=== PATIENT | female | born 1960 | race Caucasian/White ===

== ENCOUNTER 2018-12-21 09:42 | Outpatient (REF) | payer OTHER, SELFPAY ==
[2018-12-21 12:18] LABS: ALT 40 U/L (14-59); AST 28 U/L (15-37); Albumin 3.6 g/dL (3.4-5.0); Alkaline Phosphatase 70 U/L (46-116); Anion Gap 6.3 mmol/L (3-11); BUN 19 mg/dL (7-18); Bilirubin, Total 0.6 mg/dL (0.2-1.0); CO2 29.7 mmol/L (21.0-32.0); CREATININE 0.89 mg/dL (0.55-1.02); Calcium 8.8 mg/dL (8.5-10.1); Calculated LDL 123 mg/dL; Chloride 109 mmol/L (98-107); Cholesterol 184 mg/dL (50-200); Glucose 96 mg/dL (70-100); HDL Cholesterol 39 mg/dL (40-60); Potassium 4.1 mmol/L (3.5-5.1); Sodium 145 mmol/L (136-145); Total Protein 6.9 g/dL (6.4-8.2); Triglyceride 113 mg/dL (30-150)
== END 2018-12-21 10:02 ==
LOC: NCHCN 09:42
PROVIDERS: PCP Nurse Practitioner; Visit Provider Nurse Practitioner
DX: I10 Essential (primary) hypertension (principal)
CPT/HCPCS: 80053; 80061

== ENCOUNTER 2019-01-04 01:24 | Outpatient (CLI) | payer OTHER, SELFPAY ==
--- NOTE | 2019-01-04 10:15 | DI.RAD_ITS ---
EXAM: XR KNEE RT 3V AP,LAT,SYLVIE INDICATION: RT KNEE PAIN, M25.561. COMPARISON: No exams were available for comparison TECHNIQUE: 2D digital imaging was performed. FINDINGS: The bony structures are normally mineralized. There is narrowing of the lateral tibiofemoral joint s pace. Minimal periarticular hypertrophic spurring is evident. There is no evidence of a joint effus ion. IMPRESSION: Ivru-od-xsrhfkjt DJD is demonstrated.
== END 2019-01-04 01:44 ==
PROVIDERS: PCP Nurse Practitioner; Visit Provider Nurse Practitioner
DX: M25.561 Pain in right knee (principal); M17.11 Unilateral primary osteoarthritis, right knee
CPT/HCPCS: 73562

== ENCOUNTER 2019-02-24 01:41 | Outpatient (CLI) | payer OTHER, SELFPAY ==
--- NOTE | 2019-02-24 14:35 | DI.MRI_ITS ---
EXAM: MR LOWER JOINT RT WO CLINICAL HISTORY: RIGHT KNEE INJURY S83.282A TEAR LATERAL MENISCUS, INJURED STEPPING OVER A DOG GATE , SWELLING. TECHNIQUE: Multiplanar multisequence MRI was performed. MR examination of the knee was performed ac cording to the usual protocol. COMPARISON: No exams were available for comparison FINDINGS: There is a small joint effusion. There is a fluid collection in the prepatellar bursa and there also a fluid collection in the soft tissues anterior to the anterior tibial tubercle. The underlying pat ellar and quadriceps tendons appear intact. There is irregular cortical thinning of the patella and the trochlear surface of the femur consistent with degenerative change. Retinacular structures of the patella appear intact. No bony signal abnormality seen involving the femur, tibia or fibula except for mildly abnormal signa l in lateral tibial plateau consistent with degenerative change and associated with mild marginal ost eophyte formation of the lateral proximal tibia. There is abnormal signal in the lateral meniscus, which shows significant deformity, and there is a p robable lateral meniscal tear involving the body and anterior horn. There is cyst measuring approxim ately 9 millimeters in diameter, which appears to communicate with the joint space associated with th e anterior horn of the lateral meniscus, and this may represent a meniscal cyst. Medial meniscus shows abnormal signal consistent with degeneration but no focal tear is identified. Cruciate ligaments appear normal. No significant collateral ligament injury seen. IMPRESSION: Degenerative changes are noted involving all 3 articulations of the knee, irregular cartilage thinnin g at all 3 joints and marginal osteophyte formation at multiple sites. Probable lateral meniscal tear with presumed meniscal cyst associated anteriorly extending into Hoffa 's fat pad. Small fluid collections in prepatellar bursa and in the soft tissues anterior to the anterior tibial tubercle consistent with trauma or inflammation.
== END 2019-02-24 02:01 ==
PROVIDERS: PCP Nurse Practitioner; Visit Provider Student in an Organized Health Care Education/Training Program
DX: S83.281A Other tear of lateral meniscus, current injury, right knee, initial encounter (principal); M25.461 Effusion, right knee; M25.561 Pain in right knee; M17.11 Unilateral primary osteoarthritis, right knee; M25.861 Other specified joint disorders, right knee
CPT/HCPCS: 73721

== ENCOUNTER 2019-04-11 13:08 | Outpatient (CLI) | payer OTHER, SELFPAY ==
--- NOTE | 2019-04-11 14:08 | HPE_ITS ---
Assessment and Plan Assessment and plan (1) Acute lateral meniscus tear of right knee: Status: Acute Assessment and plan: Plan: Educated patient on surgery covering surgical technique, recovery process, benefits and risks including but not limited to risk of infection, blood clot, damage to soft tissue/blood vessels/nerves in detail. After discussion patient gives verbal understanding of risks and elects to proceed with scheduling surgery. Patient had opportunity to have questions answered to their satisfaction. Patient reports that due to phlegm in her throat she did see nurse pool hall inspector. If patient has any worsening cold or new symptoms she will contact office to further discuss. Patient had numerous questions regarding possibility for continued right knee pain following surgery. Patient did not previously have right knee pain prior to her fall in November therefore she has a good prognosis for pain improvement with her scheduled procedure. However, provider made it clear there are no guarantees for knee pain resolution. Patient gave verbal understanding and still elected to proceed with surgery. They will contact office if issues arise. Patient will continue to be scheduled for right knee arthroscopy with likely lateral meniscectomy and associated procedures with Dr. Jarquin. Qualifiers: Encounter type: initial encounter Qualified Code(s): S83.281A - Other tear of lateral meniscus, current injury, right knee, initial encounter History of Present Illness Narrative: Ms. Chapa is a 58-year-old female who presents to clinic for pre- operative exam for scheduled right knee arthroscopy. Patient has been seen in orthopedic clinic for complaints of pain along the anterolateral portion of her right knee that has been ongoing after a tripping fall in November 2018. In addition she reports episodes of clicking and feeling that the knee could give out. She has continued to have restricted ROM and swelling. Due to her continued discomfort she underwent an MRI which as per Dr. Jarquin's note on 03/06/19 showed complex tear lateral meniscus extending into the anterior root with a para meniscal cyst anteriorly within Hoffa's fat pad. Due to her continued pain she was offered surgical intervention and elected to proceed. Pertinent Surgical Information Denies past medical history of: stroke, cardiac issues, angina, asthma, COPD, sleep apnea, renal issues, liver issues, hepatitis, gastrointestinal issues, ulcers, hyperlipidemia, bleeding disorders, seizures, migraines, anxiety, depression, diabetes, autoimmune disorders, thyroid issues Denies prior complications from surgery or anesthesia. Review of Systems Constitutional Constitutional: Denies chills, Denies fever(s), Denies frequent falls and Denies headache(s) Eyes Eyes: Denies change in vision ENT Ears, Nose, Mouth, and Throat: Denies dizziness, Denies ear discharge, Denies headache(s), Denies epistaxis, Denies nasal discharge and Denies sore throat (slight phlegm in her throat for several days) Cardiovascular Cardiovascular: Denies chest pain, Denies rapid heart rate, Denies irregular heart rhythm, Denies palpitations, Denies dyspnea, Denies dyspnea on exertion, Denies orthopnea, Denies paroxysmal nocturnal dyspnea and Denies slow heart rate Respiratory Respiratory: Denies cough, Denies dyspnea, Denies dyspnea on exertion and Denies wheezing Gastrointestinal Gastrointestinal: Denies abdominal pain, Denies melena, Denies hematochezia, Denies constipation, Denies diarrhea, Denies nausea and Denies vomiting Genitourinary Genitourinary: Denies hematuria, Denies dysuria and Denies urinary urgency Musculoskeletal Musculoskeletal: Reports as per HPI, Denies numbness and Denies tingling Neurologic Neurologic: Denies dizziness, Denies frequent falls, Denies headache(s), Denies numbness and Denies tingling Psychiatric Psychiatric: Denies anxiety and Denies depression Endocrine Endocrine: Denies palpitations Allergic/Immunologic Allergic/Immunologic: Denies wheezing [facility] Medical History (Updated 04/11/19 @ 14:14 by Angelique King) Hypertension (Chronic) Surgical History (Updated 04/11/19 @ 14:21 by Angelique King) Status post tubal ligation (Acute) Social History (Updated 04/11/19 @ 14:23 by Angelique King) Smoking/Tobacco Use Status: Never Alcohol Intake: never Drug use: Never Substance use type: does not use 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 What is your relationship status?: Panel score (0-1 are the most socially isolated patients): 1 Do you feel safe at home: Yes Do you feel safe in your relationship?: Yes Meds Home Medications and Allergies Home Medications Medication Instructions Recorded Confirmed Type aspirin 81 mg tablet,delayed 81 mg PO DAILY 02/10/19 04/11/19 History release losartan 100 1 tab PO DAILY 02/10/19 04/11/19 History mg-hydrochlorothiazide 12.5 mg tablet multivitamin 1 tab PO DAILY 04/11/19 04/11/19 History Allergies Allergy/AdvReac Type Severity Reaction Status Date / Time 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 Allergy Severe RASH/HIVES/ Uncoded 04/11/19 14:05 WELTS Exam Const General: cooperative and no acute distress [facility] Head: normal to inspection, normocephalic and atraumatic Ears: external ears normal General nose exam: external nose normal and no nasal discharge Face and sinus: face symmetric Mouth: oral mucosae normal, lip normal, tongue normal and moist mucous membranes Teeth and gingiva: dentition normal Throat: posterior oropharynx normal Eyes General: appearance normal, both eyes and all related structures Pupils: PERRL EOM: EOM intact bilaterally Neck Neck: trachea midline Carotids: normal carotid upstroke Lymphatic: no lymphadenopathy noted Resp Effort & Inspection: normal respiratory effort and able to speak in complete sentences Auscultation: clear to auscultation bilaterally, no rales, no rhonchi and no wheezes Cardio Heart Sounds: S1 normal, S2 normal and no murmurs Pulses: radial pulses present bilaterally Skin General skin exam: no rashes or lesions noted
== END 2019-04-11 13:28 ==
PROVIDERS: PCP Nurse Practitioner; Visit Provider Student in an Organized Health Care Education/Training Program
DX: S83.281A Other tear of lateral meniscus, current injury, right knee, initial encounter (principal); Z01.818 Encounter for other preprocedural examination
CPT/HCPCS: NC

== ENCOUNTER 2019-04-18 09:42 | Day surgery (SDC) | payer OTHER, SELFPAY ==
[2019-04-11 13:15] VITALS: BP 134/76; PULSE 78; O2SAT 97
[2019-04-18] VITALS (7 sets, daily range): BP systolic 119–151; BP diastolic 76–90; PULSE 71–82; RESP 14–18; TEMP 36.3–36.6; O2SAT 95–98
[2019-04-18] MEDS: Lactated Ringers 1,000 ML 80 ML IV (10:26)
[2019-04-18] MEDS: ceFAZolin 2 GM/50 ML BAG IVPB (11:27)
[2019-04-18] MEDS: EPINEPHrine 30 MG/30 ML VIAL (11:30)
--- NOTE | 2019-04-18 11:47 | PDOC.DSDIS_ITS ---
Discharge Plan Disposition Patient Disposition: HOME Condition: Good Discharge Details Reason For Visit: Right knee arthroscopy Attending Provider: Gustavo Jarquin Primary Care Provider: Evangelina Muñoz Home Meds and New Rx's Prescriptions: New hydrocodone-acetaminophen 5-325 mg tablet 1 tab PO Q6H PRN (Reason: pain) Qty: 6 RF: 0 ibuprofen 600 mg tablet 600 mg PO TID PRNQty: 30 RF: 0 acetaminophen 500 mg capsule 500 mg PO Q4H PRN (Reason: pain) Qty: 30 RF: 0 Continued losartan-hydrochlorothiazide 100-12.5 mg tablet 1 tab PO DAILY RF: 0 aspirin [Adult Aspirin Regimen] 81 mg tablet,delayed release (DR/EC) 81 mg PO DAILY RF: 0 multivitamin Tablet 1 tab PO DAILY RF: 0 Discharge Instructions Stand Alone Forms: [facility] K[facility] Arthrosc[facility] Referrals: Gustavo Jarquin MD [ [facility]] - Equipment/Supplies: Partial Weight Bearing Crutches Activity:: Activity as Tolerated Remove Dressings/Wound Care:: 48 hours Shower/Bathe:: 48 hours Diet:: As Tolerated Discharge Orders Discharge Orders: Discharge Order (Routine); Ordered 04/18/19 Ordered By: Clay Owens DS: Diagnosis Discharge Diagnosis (1) Acute lateral meniscus tear of right knee: Status: Acute
[2019-04-18] MEDS: Bupivacaine 0.5% Pres-Free 30 ML VIAL (12:20)
--- NOTE | 2019-04-18 12:30 | ROE_ITS ---
Date of service: 04/18/19 Time of Service: 12:31 Operative Note Operative Note DATE OF PROCEDURE: 04/18/19 PRE-OP DIAGNOSIS: Right Lateral Meniscus Tear POST-OP DIAGNOSIS: same Right Lateral and Medial Meniscus Tear, Tricompartmental Chondromalacia PROCEDURE: Right knee arthroscopic partial medial and lateral meniscectomy with fat pad debridement and chondroplasty of loose cartilage flaps of the medial femur SURGEON: Gustavo Jarquin ANESTHESIA: GETA ESTIMATED BLOOD LOSS: 0 PATHOLOGY: none sent TOURNIQUET TIME: 0 COMPLICATIONS: None Patient was transported to: PACU Patient's condition: stable Indications: I have seen Mellissa in clinic for symptoms of a meniscus tear. This was confirmed based on MRI and exam findings. Nonoperative measures were exhausted but disability and pain persisted. I discussed knee arthroscopy with meniscal intervention with the patient. I reviewed the risks of the procedure to include, but not limited to, bleeding, infection, pain, stiffness, damage to nerves or vessels, recurrence, blood clot. Despite these risks, the patient elected to proceed. Findings: A diagnostic arthroscopy was performed with the following findings: Suprapatellar Pouch: Mild inflammatory changes, no loose bodies Medial Compartment: Complex tearing of the central portion of the posterior horn, intact meniscal root, focal grade IV chondromalacia of the medial aspect of the medial femur with loose chondral flaps and grade II/III chondromalacia of the central portion of the tibia, no loose bodies Notch: ACL and PCL were intact Lateral Compartment: Complex anterior lateral meniscus tear involving the majority of the anterior portion of the meniscus, intact meniscal root, global grade III chondromalacia throughout the tibia and some focal grade 1/2 changes over the femur, no loose bodies Patellofemoral Compartment: Grade I/II chondromalacia of the patella, no apparent patellar maltracking Procedure Description: Mellissa was greeted in the preoperative holding area where the correct side was identified and marked. The consent was reviewed with the patient and signed. The history and physical was updated. All questions were answered. She was taken back to the operating room. The patient was placed into the supine position on the operating room table. A nonsterile tourniquet was placed high onto the leg but not used. All bony prominences were well padded. Prophylactic antibiotics in the form of cefazolin were administered. The right leg was then prepped with Chloraprep and draped in a standard fashion with stockinette and extremity drape. A timeout to confirm correct identity, side and site, procedure, allergies, anesthesia, and medical concerns was performed. The leg was placed into a pneumatic leg navarrete, SPIDER2. A standard lateral portal was made at the lateral border of the patella tendon in line with the inferior pole of the patella, soft spot. The skin and deep tissue was incised sharply and the blunt trochar was inserted atraumatically. A diagnostic arthroscopy was performed and the findings are listed above. The suprapatellar pouch had no significant inflammatory change. The patellofemoral articulation showed grade I/II chondromalacia with good tracking. The lateral gutter had no loose bodies and the medial gutter had no loose bodies but there was a notable osteophyte over the medial aspect of the medial femur. The knee was brought into some valgus stress in extension to open the medial compartment. A medial portal was made, localized by a spinal needle. The portal was created with an #11 blade through skin and capsule under direct visualization avoiding any meniscal injury. A probe was then inserted into the medial compartment. The medial compartment was fully inspected. The chondral surface of the tibia showed global grade III chondromalacia, focus primarily in the central portion of the tibia, and the surface of the femur showed grade IV chondromalacia of the distal, medial medial femur with loose chondral flaps. The medial meniscus had fraying and a complex tear the posterior horn without destabilization from the periphery. After evaluation, the meniscus was debrided down to a stable base using a series of biters and arthroscopic santo. It was probed afterwards to confirm that the tear had been removed and the meniscus was stable. Cartilage surfaces were debrided of any flaps, leaving any intact fibers. The notch was then inspected which showed an intact ACL and an intact PCL. The leg was then brought into a figure of 4 position. The lateral compartment was fully inspected with the arthroscope and a probe. The chondral surface of the lateral femur showed grade I/II chondromalacia primarily in the central portion of the distal femur. The chondral surface of the lateral tibia showed global grade III chondromalacia. The lateral meniscus had a complex tear involving the anterior portion of the lateral meniscus. There is a complex tear with a loose horizontal configuration. It extended into the periphery. The superior flap was debrided down all the way to the anterior horn. The meniscus quality was quite poor with degeneration seen in the central portion. A series of biters and santo was used to debride this to stable base. There appeared to be some separation of the inferior leaflet of the anterior meniscus from the periphery, however, it was well attached to the anterior tibia at its anterior root. Therefore, I did not debride this portion although it was attached anteriorly to the capsule. A probe confirmed that the meniscus was not unstable and therefore this was left. There was some fraying seen around the posterior aspect of the lateral meniscus which was debrided down but without any swetha tear appreciated. The arthroscope was brought back into the suprapatellar pouch and the leg was in full extension. The knee was thoroughly irrigated with the arthroscopic fluid on high flow and pressure. Inflow was stopped and excess fluid was removed. The wounds were closed with 4-0 Nylon. They were dressed with Xeroform, 4x4 gauze, ABD pad, Kerlix and an HEIDE wrap. A cryo-cuff was applied. The patient tolerated the procedure well and was returned to the [facility] area in a stable condition suffering no known complication.
[2019-04-18] MEDS: HYDROcodone 5/Acetaminophen 325 TAB PO (13:39)
== END 2019-04-18 13:25 | disposition home or self-care (01) ==
PROVIDERS: PCP Nurse Practitioner; Visit Provider Student in an Organized Health Care Education/Training Program
PROC: (CPT 29870; principal; 2019-04-18 12:45)
DX: S83.231A Complex tear of medial meniscus, current injury, right knee, initial encounter (principal); S83.271A Complex tear of lateral meniscus, current injury, right knee, initial encounter; M94.261 Chondromalacia, right knee; W19.XXXA Unspecified fall, initial encounter
CPT/HCPCS: 29880; E0114; J0690; J1100; J1885; J2405; J2704

== ENCOUNTER 2019-12-20 07:56 | Outpatient (REF) | payer OTHER, SELFPAY ==
[2019-12-20 20:05] LABS: ALT 26 U/L (14-59); AST 19 U/L (15-37); Albumin 3.7 g/dL (3.4-5.0); Alkaline Phosphatase 65 U/L (46-116); BUN 14 mg/dL (7-18); Bilirubin, Total 0.6 mg/dL (0.2-1.0); CREATININE 0.83 mg/dL (0.55-1.02); Calcium 9.2 mg/dL (8.5-10.1); Calculated LDL 136 mg/dL (<100); Chloride 108 mmol/L (98-107); Cholesterol 197 mg/dL (<200); Glucose 94 mg/dL (74-106); HDL Cholesterol 41 mg/dL (40-60); Potassium 4.1 mmol/L (3.5-5.1); Sodium 145 mmol/L (136-145); Total Protein 6.8 g/dL (6.4-8.2); Triglyceride 103 mg/dL (<150)
== END 2019-12-20 08:16 ==
LOC: NCHCN 07:56
PROVIDERS: PCP Nurse Practitioner; Visit Provider Nurse Practitioner
DX: I10 Essential (primary) hypertension (principal)
CPT/HCPCS: 80053; 80061

== ENCOUNTER 2019-12-20 08:36 | Outpatient (CLI) | payer OTHER, SELFPAY ==
--- NOTE | 2019-12-20 11:15 | DI.MAMMO_ITS ---
EXAM: MG MAMMO SCREENING CLINICAL HISTORY: SCREENING, [facility],Z00.00 TECHNIQUE: Bilateral full field digital CC and MLO mammographic images were obtained with 3D tomosyn thesis and utilizing computer aided detection (CAD). COMPARISON: None. FINDINGS: Masses/Architectural Distortion: None seen. Microcalcifications: No suspicious pleomorphic-type are seen. Skin Thickening/Nipple Retraction: None. IMPRESSION: 1. No specific features of malignancy noted. 2. Unless there is more urgent need, screening mammography is recommended, as per [employer] guidelines. BI-RADS Category 1 - Negative Breast Density - Category B - Scattered areas of fibroglandular density A negative radiographic report should not delay biopsy if a dominant or clinically suspicious mass is present. Up to ten percent of cancers are not identified on mammography. A negative report may reinforce clinical impression. Adenosis and dense breasts may obscure an underlying neoplasm. False positive reports average 6 to 10%. Patient will receive a letter notifying them of these results.
== END 2019-12-20 08:56 ==
PROVIDERS: PCP Nurse Practitioner; Visit Provider Nurse Practitioner
DX: Z12.31 Encounter for screening mammogram for malignant neoplasm of breast (principal); Z00.00 Encounter for general adult medical examination without abnormal findings; R92.2 Inconclusive mammogram
CPT/HCPCS: 77063; 77067

== ENCOUNTER 2021-01-08 12:40 | Outpatient (REF) | payer OTHER, SELFPAY ==
[2021-01-08 14:31] LABS: ALT 29 U/L (14-59); AST 22 U/L (15-37); Albumin 3.7 g/dL (3.4-5.0); Alkaline Phosphatase 67 U/L (46-116); Anion Gap 8.6 mmol/L (3-11); BUN 17 mg/dL (7-18); Bilirubin, Total 0.7 mg/dL (0.2-1.0); CO2 28.4 mmol/L (21.0-32.0); CREATININE 0.9 mg/dL (0.55-1.02); Calcium 9.2 mg/dL (8.5-10.1); Calculated LDL 124 mg/dL (<100); Chloride 106 mmol/L (98-107); Cholesterol 197 mg/dL (<200); Glucose 87 mg/dL (74-106); HDL Cholesterol 41 mg/dL (40-60); Sodium 143 mmol/L (136-145); Total Protein 6.9 g/dL (6.4-8.2); Triglyceride 162 mg/dL (<150)
== END 2021-01-08 12:41 | disposition home or self-care (01) ==
LOC: NCHCN 12:40
PROVIDERS: PCP Nurse Practitioner; Visit Provider Nurse Practitioner
DX: I10 Essential (primary) hypertension (principal); Z13.220 Encounter for screening for lipoid disorders
CPT/HCPCS: 80053; 80061

== ENCOUNTER 2021-04-11 09:40 | Emergency (ER) | payer OTHER, SELFPAY ==
[2021-04-11] VITALS (27 sets, daily range): BP systolic 120–145; BP diastolic 71–84; PULSE 91–128; RESP 16–33; TEMP 36.5; O2SAT 96–99
--- NOTE | 2021-04-11 10:15 | RT.EKG_ITS ---
APPROVED REPORT Exam: Resting ECG Reason for Exam: weakness Patient Location: E HR:96 bpm ECG Measurements Heart Rate 96 AXIS MS 159 P 36 QRSd 93 QRS 8 QT 345 T 17 QTc 435 Conclusion Sinus rhythm...normal P axis, V-rate 60- 99
[2021-04-11 11:06] LABS: ALT 23 U/L (14-59); AST 29 U/L (15-37); Albumin 2.9 g/dL (3.4-5.0); Alkaline Phosphatase 84 U/L (46-116); Anion Gap 11.5 mmol/L (3-11); BUN 33 mg/dL (7-18); CO2 21.5 mmol/L (21.0-32.0); CREATININE 1.2 mg/dL (0.55-1.02); Chloride 97 mmol/L (98-107); Estimated GFR 45.67 (mL/min/1.73m2); Glucose 112 mg/dL (74-106); Potassium 3.5 mmol/L (3.5-5.1); Sodium 130 mmol/L (136-145); Total Protein 7.5 g/dL (6.4-8.2); Troponin I < 50 ng/L (<or=60)
--- NOTE | 2021-04-11 11:15 | DI.CT_ITS ---
Exam(s) CT CHEST PE CTA EXAM: CT CHEST PE CTA CLINICAL HISTORY: shortness of breath, tachycardic. TECHNIQUE: Imaging Protocol: CT angiography of the chest was performed using pulmonary embolus cody col. Multi planar reconstructions were performed. CONTRAST MATERIAL: Intravenous: Omnipaque 350 Contrast volume: 100 cc COMPARISON: No exams were available for comparison FINDINGS: CHEST: PULMONARY ARTERIES: There are no intraluminal filling defects to suggest acute pulmonary emboli. LUNGS: There are no infiltrates nor evidence of pulmonary infarction.. There are no pleural effusions . No significant focal findings in the trachea and mainstem bronchi. MEDIASTINUM: There is no hilar nor mediastinal adenopathy. Visualized thyroid unremarkable.Large hiat al hernia is noted CARDIAC: Heart size is upper normal. There is no pericardial effusion.Caliber of the thoracic aorta is within normal limits. There is no significant shift of the interventricular septum. PARTIALLY VISUALIZED UPPERMOST ABDOMEN: Large hiatal hernia. Multiple gallstones noted. No obvious adrenal masses. Right renal calculi. OSSEOUS: No significant osseous lesions.. IMPRESSION: 1. No evidence of acute pulmonary emboli. No evidence of pulmonary infarction.No pleural effusions. 2. No intrathoracic adenopathy. 3. Prominent hiatal hernia is noted. Also multiple gallstones and right nephrolithiasis. RADIATION DOSE DELIVERED: 358.07mGy.cm Total DLP DATA REPOSITORY: All CT scans at this facility are submitted to the National Radiology Data Registry (NRDR) Dose Index Registry (DIR) with the [employer] ([employer]). RADIATION OPTIMIZATION: All CT scans at this facility use at least one of these dose optimization te chniques: automated exposure control; mA and/or kV adjustment per patient size (includes targeted exa ms where dose is matched to clinical indication); or iterative reconstruction.
[2021-04-11 11:18] LABS: Abs Immature Grans 0.37 10^3/uL (0.0-0.06); Absolute Basophil Count 0.06 10^3/uL (0.0-0.2); Absolute Neutrophil Count 14.57 10^3/uL (1.2-6.7); Basophils % 0.4; HCT 38.7 % (36.0-46.0); Immature Grans % 2.3; Lymphocytes % 3.2; MCH 29.3 pg (27.0-33.0); MCHC 33.6 % (32.0-36.0); MCV 87.4 fL (80-95); MPV 9.2 fL (8.0-11.0); Monocytes % 3.8; Neutrophils % 90.3; Nucleated RBC 0 %; Platelet Count 131 10^3/uL (130-400); RBC 4.43 10^6/uL (3.93-5.22); RDW 13.2 % (11.7-14.6); RDW-SD 42.1 fL; WBC 16.13 10^3/uL (4.4-10.8)
[2021-04-11 11:25] LABS: D-Dimer 3789 ng/mlFEU (<500)
[2021-04-11 11:26] LABS: Absolute Lymphocyte Count 0.52 10^3/uL (1.2-3.4); Absolute Monocyte Count 0.61 10^3/uL (0.1-0.8)
[2021-04-11] MEDS: Omnipaque 350 MG/ML 100 ML BTL IJ (11:55)
--- NOTE | 2021-04-11 12:14 | ED.GENADUL_ITS ---
Discharge Plan Disposition Patient Disposition: HOME Condition: Stable Discharge Details Clinical Impression: Fatigue, Lip swelling Primary Care Provider: Evangelina Muñoz ED Provider: Matt Bourgeois Home Meds and New Rx's Prescriptions: New hydrochlorothiazide 12.5 mg tablet 12.5 mg PO BID Qty: 60 RF: 0 Continued aspirin [Adult Aspirin Regimen] 81 mg tablet,delayed release (DR/EC) 81 mg PO DAILY RF: 0 multivitamin Tablet 1 tab PO DAILY RF: 0 ibuprofen 600 mg tablet 600 mg PO TID PRNQty: 30 RF: 0 Discontinued losartan-hydrochlorothiazide 100-12.5 mg tablet 1 tab PO DAILY RF: 0 Discharge Instructions Instructions: Fatigue (ED) Additional Instructions: I am concerned that the losartan component of your blood pressure medicine may have caused angioedema (swelling of your lip ). Please continue to hold losartan and follow-up with your primary care physician regarding blood pressure management. I have prescribed hydrochlorothiazide as a bridge to follow-up with your primary care physician. Please take as prescribed. You may have COVID illness. COVID testing is pending and should be available within the next couple days. Please maintain home isolation until COVID test is resulted. Please drink plenty of fluids to stay hydrated as we discussed. Please follow-up with your primary care physician. Call today to arrange follow- up. Return to the emergency department immediately for any worsening or new concerning symptoms. Discharge Data Discharge Date/Time-TO BE ENTERED AT DEPARTURE: 04/11/21 13:05 Medical Decision Making 60-year-old female with history of hypertension, here generally not feeling well with intermittent fever, aches, shortness of breath. Patient tachycardic on arrival, no longer tachycardic on my examination. Considered atypical presentation for ACS. Screening EKG was reviewed and interpreted by me: Please see report, no STEMI, nondiagnostic. Troponin normal. Patient is low risk for pulmonary embolism. A D-dimer was checked and was significantly elevated. Proceeded with CT of the chest which was reviewed and interpreted by radiology: IMPRESSION: 1. No evidence of acute pulmonary emboli. No evidence of pulmonary infarction.No pleural effusions. 2. No intrathoracic adenopathy. 3. Prominent hiatal hernia is noted. Also multiple gallstones and right nephrolithiasis. Labs reviewed and leukocytosis noted. Urinalysis reviewed and is not consistent with UTI. Results were discussed with the patient. She has remained stable here in the emergency department. Considered COVID. COVID test sent and results will not be available today. Plan to have her follow-up with her primary care physician. I am concerned in review of the photographs of her lips from earlier in the week that she may have had angioedema potentially related to losartan. Swelling has resolved. Plan will be to discontinue losartan. I will increase dose of hydrochlorothiazide slightly and have her follow-up with her primary care physician for recheck and antihypertensive medication adjustment. HPI General Mode of arrival: ambulatory . Date/Time Provider Initiated Documentation: 04/11/21 09:45 . Limitations to Documentation: no limitations . Information obtained by: patient . HPI Narrative: 60-year-old female with h istory of hypertension, presents with chief complaint of generally not feeling well. Patient notes that she has had intermittent fevers and has been generally not feeling well with fatigue and shortness of breath over the past week. Symptoms are moderate with no modifiers. No associated chest pain. No leg swelling or calf pain. Patient is fully vaccinated against COVID. Patient also notes that earlier this week she had some significant lip swelling. She thought she might have a small ulcer on her upper lip because it swelled so significantly. She stopped taking her antihypertensive medication losartan/hydrochlorothiazide which she has been on for some time. Swelling has resolved. Related Data Home Medications Medication Instructions Recorded Confirmed aspirin 81 mg tablet,delayed 81 mg PO DAILY 02/10/19 04/11/21 release multivitamin 1 tab PO DAILY 04/11/19 04/11/21 ibuprofen 600 mg PO TID PRN #30 tab 04/18/19 04/11/21 hydrochlorothiazide 12.5 mg PO BID #60 tab 04/11/21 Previous Rx's Medication Instructions Recorded ibuprofen 600 mg PO TID PRN #30 tab 04/18/19 hydrochlorothiazide 12.5 mg PO BID #60 tab 04/11/21 Allergies Allergy/AdvReac Type Severity Reaction Status Date / Time losartan AdvReac Severe angioedema? 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 Allergy Severe RASH/HIVES/ Uncoded 04/11/21 09:51 WELTS General Stated Complaint: RespSymp STEVE: 3 Review of Systems All systems reviewed & are unremarkable except as noted in HPI and below Constitutional Constitutional: Reports body ache(s), Reports fatigue and Reports fever(s) Cardiovascular Cardiovascular: Denies chest pain and Reports dyspnea Respiratory Respiratory: Reports dyspnea Endocrine Endocrine: Reports fatigue PFSH All Active Problems Fatigue (Acute) Lip swelling (Acute) Acute lateral meniscus tear of right knee (Acute) S/P right knee arthroscopy with partial lateral menisectomy on 04/18/2019 Hypertension (Chronic) Surgical History Status post tubal ligation Social History Smoking/Tobacco Use Status: Never Smoking risk assessment performed?: Yes Alcohol Intake: never Drug use: Never Substance use type: does not use 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 Current gender identity: female What is your relationship status?: Panel score (0-1 are the most socially isolated patients): 1 Do you feel safe at home: Yes Do you feel safe in your relationship?: Yes Exam Const General: cooperative and no acute distress HENMT Head: normocephalic and atraumatic Mouth: moist mucous membranes Eyes Conjunctivae: normal conjunctivae Sclera: normal sclerae Neck Neck: trachea midline Resp Auscultation: clear to auscultation bilaterally, no rales, no rhonchi and no wheezes Cardio Rate: regular rate and not tachycardic Rhythm: regular rhythm GI Palpation: soft, not firm, no guarding, no masses, not rigid and nontender Skin General skin exam: no rashes or lesions noted Neuro General: patient alert, patient awake, patient oriented x3 and tone normal Extrem General: no calf tenderness and no edema Psych Appearance: grossly normal Mental Status: mental status grossly normal Speech and Movement: speech and movement normal Course Vital Signs Vital signs: Vital Signs Temperature 36.5 C 04/11/21 09:48 Pulse 105 H 04/11/21 09:48 Respiratory Rate 16 04/11/21 09:48 Blood Pressure 145/84 H 04/11/21 09:48 Pulse Oximetry 97 04/11/21 09:48 Temperature 36.5 C 04/11/21 09:48 Temperature Source Temporal Artery Scan 04/11/21 09:48 Pulse 99 H 04/11/21 10:15 Pulse 102 H 04/11/21 10:15 Respiratory Rate 21 04/11/21 10:15 Respiratory Effort Non-Labored 04/11/21 09:52 Respiratory Depth Normal 04/11/21 09:52 Blood Pressure 123/78 04/11/21 10:15 Blood Pressure Mean 89 04/11/21 10:15 Blood Pressure Position Sitting 04/11/21 09:48 Pulse Oximetry 97 04/11/21 10:15 Oxygen Delivery Method Room Air 04/11/21 09:48 Oxygen Flow Rate 0 04/11/21 09:48 Pain Level 0 04/11/21 09:48 Lab/Test Results Lab/Test Results: Laboratory Tests Range/Units 04/11/21 04/11/21 04/11/21 10:01 10:01 10:25 WBC Cancelled RBC Cancelled Hgb Cancelled Hct Cancelled MCV Cancelled MCH Cancelled MCHC Cancelled RDW Cancelled Plt Count Cancelled MPV Cancelled Immature Gran % Cancelled Neutrophils % Cancelled Band Neutrophils % Cancelled Lymphocytes % Cancelled Atypical Lymphs % Cancelled Monocytes % Cancelled Eosinophils % Cancelled Basophils % Cancelled Metamyelocytes % Cancelled Myelocytes % Cancelled Promyelocytes % Cancelled Other Cells % Cancelled Nucleated RBC % Cancelled Absolute Neutrophils Cancelled Absolute Lymphocytes Cancelled Absolute Monocytes Cancelled Absolute Eosinophils Cancelled Absolute Basophils Cancelled RBC Morphology Cancelled Polychromasia Cancelled Hypochromasia Cancelled Poikilocytosis Cancelled Basophilic Stippling Cancelled Anisocytosis Cancelled Microcytosis Cancelled Macrocytosis Cancelled Spherocytes Cancelled Tear Drop Cells Cancelled Ovalocytes Cancelled Stomatocytes Cancelled Cardoso-[place] Bodies Cancelled [place] Cells/Echinocytes Cancelled Acanthocytes (Spur) Cancelled Schistocytes Cancelled D-Dimer (<500) ng/mlFEU 3789 H Sodium (136-145) mmol/L 130 L Potassium (3.5-5.1) mmol/L 3.5 Chloride (98-107) mmol/L 97 L Carbon Dioxide (21.0-32.0) mmol/L 21.5 Anion Gap (3-11) mmol/L 11.5 H BUN (7-18) mg/dL 33 H Creatinine (0.55-1.02) mg/dL 1.2 H Estimated GFR/1.73 m2 (mL/min/1.73m2) 45.67 Glucose (74-106) mg/dL 112 H Calcium (8.5-10.1) mg/dL 9.0 Total Bilirubin (0.2-1.0) mg/dL 1.0 AST (15-37) U/L 29 ALT (14-59) U/L 23 Alkaline Phosphatase (46-116) U/L 84 Troponin I (<or=60) ng/L < 50 Total Protein (6.4-8.2) g/dL 7.5 Albumin (3.4-5.0) g/dL 2.9 L Range/Units 04/11/21 11:10 WBC 16.13 H RBC 4.43 Hgb 13.0 Hct 38.7 MCV 87.4 MCH 29.3 MCHC 33.6 RDW 13.2 Plt Count 131 MPV 9.2 Immature Gran % 2.3 Neutrophils % 90.3 Band Neutrophils % Lymphocytes % 3.2 Atypical Lymphs % Monocytes % 3.8 Eosinophils % 0.0 Basophils % 0.4 Metamyelocytes % Myelocytes % Promyelocytes % Other Cells % Nucleated RBC % 0 Absolute Neutrophils 14.57 H Absolute Lymphocytes 0.52 L Absolute Monocytes 0.61 Absolute Eosinophils 0.00 Absolute Basophils 0.06 RBC Morphology Polychromasia Hypochromasia Poikilocytosis Basophilic Stippling Anisocytosis Microcytosis Macrocytosis Spherocytes Tear Drop Cells Ovalocytes Stomatocytes Cardoso-[place] Bodies [place] Cells/Echinocytes Acanthocytes (Spur) Schistocytes D-Dimer (<500) ng/mlFEU Sodium (136-145) mmol/L Potassium (3.5-5.1) mmol/L Chloride (98-107) mmol/L Carbon Dioxide (21.0-32.0) mmol/L Anion Gap (3-11) mmol/L BUN (7-18) mg/dL Creatinine (0.55-1.02) mg/dL Estimated GFR/1.73 m2 (mL/min/1.73m2) Glucose (74-106) mg/dL Calcium (8.5-10.1) mg/dL Total Bilirubin (0.2-1.0) mg/dL AST (15-37) U/L ALT (14-59) U/L Alkaline Phosphatase (46-116) U/L Troponin I (<or=60) ng/L Total Protein (6.4-8.2) g/dL Albumin (3.4-5.0) g/dL
[2021-04-11 12:28] LABS: Clarity Clear (Clear); Specific Gravity <= 1.005 (1.005-1.025)
[2021-04-11 12:29] LABS: Bilirubin Negative (Negative); Blood Moderate (Negative); Glucose Negative (Negative); Ketones Trace mg/dL (Negative); Leukocyte Esterase Trace (Negative); Nitrite Negative (Negative); Urobilinogen 0.2 EU/dL (Up TO 0.2); pH 5.5 (5-8)
[2021-04-11 12:43] LABS: Bacteria Few HPF (Negative); C & S Indicated? Yes; Casts Negative LPF (Negative); Crystals Negative HPF (Negative); Epithelial Cells Few HPF (Negative); Mucus Negative (Negative); WBC 0-2 HPF (0-5)
[2021-04-12 14:58] LABS: COVID-19 RT-PCR UVMMC Result Negative (Negative)
--- NOTE | 2021-04-12 18:06 | NUR.NOTE ---
patient notified of negative covid results.
--- NOTE | 2021-04-15 09:44 | W.ED.FU ---
Date of service: 04/15/21 Time of Service: 09:44 Follow Up Plan: 0945: Call made to patient for follow-up on urinalysis and culture which shows E. coli. Patient was not given antibiotics from her ER visit here on the . No answer, voice message left.
--- NOTE | 2021-04-16 16:26 | NUR.NOTE ---
patient has a uti, Gail Coyne NP e-scribing abx script to [facility] in [place].
--- NOTE | 2021-04-16 16:27 | W.ED.FU ---
Date of service: 04/16/21 Time of Service: 16:27 Follow Up Plan: Patient called back. Discussed urinary tract infection prescription for cephalexin 5 mg twice daily x7 days sent to the pharmacy via E prescription. Patient verbalized understanding.
== END 2021-04-11 13:05 | disposition home or self-care (01) ==
PROVIDERS: Emergency Provider Student in an Organized Health Care Education/Training Program; PCP Nurse Practitioner
DX: R53.83 Other fatigue (principal); R06.02 Shortness of breath; R22.0 Localized swelling, mass and lump, head; Z20.822 Contact with and (suspected) exposure to COVID-19; N39.0 Urinary tract infection, site not specified; B96.20 Unspecified Escherichia coli [E. coli] as the cause of diseases classified elsewhere; R50.9 Fever, unspecified; D72.829 Elevated white blood cell count, unspecified
CPT/HCPCS: 36415; 71275; 80053; 87077; 93005; 99285; U0003; 81003; 81015; 84484; 85025; 85379; 87086; 87186; 93010; 99284; J3490

== ENCOUNTER 2021-04-21 15:03 | Outpatient (CLI) | payer OTHER, SELFPAY ==
[2021-04-21 13:35] LABS: Abs Immature Grans 0.07 10^3/uL (0.0-0.06); Absolute Basophil Count 0.05 10^3/uL (0.0-0.2); Absolute Eosinophil Count 0.04 10^3/uL (0.0-0.7); Absolute Lymphocyte Count 0.98 10^3/uL (1.2-3.4); Absolute Monocyte Count 0.39 10^3/uL (0.1-0.8); Absolute Neutrophil Count 8.59 10^3/uL (1.2-6.7); Basophils % 0.5; Eosinophils % 0.4; HCT 37.4 % (36.0-46.0); HGB 12.3 g/dL (11.2-15.7); Immature Grans % 0.7; Lymphocytes % 9.7; MCH 28.9 pg (27.0-33.0); MCHC 32.9 % (32.0-36.0); MPV 9.6 fL (8.0-11.0); Monocytes % 3.9; Neutrophils % 84.8; Nucleated RBC 0 %; RBC 4.25 10^6/uL (3.93-5.22); RDW 14.3 % (11.7-14.6); RDW-SD 46.1 fL; WBC 10.12 10^3/uL (4.4-10.8)
[2021-04-21 13:38] LABS: ESR 36 mm/hr (0-30)
[2021-04-21 13:40] LABS: Platelet Count 255 10^3/uL (130-400)
[2021-04-21 13:45] LABS: Bilirubin Negative (Negative); Blood Large (Negative); Clarity Cloudy (Clear); Glucose Negative (Negative); Ketones Negative (Negative); Leukocyte Esterase Trace (Negative); Nitrite Negative (Negative); Urobilinogen 0.2 EU/dL (Up TO 0.2); pH 5.5 (5-8)
[2021-04-21 13:56] LABS: ALT 35 U/L (14-59); AST 28 U/L (15-37); Albumin 2.6 g/dL (3.4-5.0); Alkaline Phosphatase 99 U/L (46-116); Anion Gap 7.3 mmol/L (3-11); BUN 32 mg/dL (7-18); Bilirubin, Total 0.5 mg/dL (0.2-1.0); C-Reactive Protein 16.18 mg/dL (0.0-0.3); CO2 23.7 mmol/L (21.0-32.0); CREATININE 1.3 mg/dL (0.55-1.02); Calcium 9.2 mg/dL (8.5-10.1); Chloride 98 mmol/L (98-107); Estimated GFR 41.64 (mL/min/1.73m2); Glucose 104 mg/dL (74-106); Sodium 129 mmol/L (136-145); TSH (W/Ref FT4) 1.02 uIU/mL (0.36-3.74); Total Protein 7.9 g/dL (6.4-8.2)
[2021-04-21 13:59] LABS: Bacteria Moderate HPF (Negative); C & S Indicated? Yes; Casts Negative LPF (Negative); Crystals Negative HPF (Negative); Epithelial Cells Few HPF (Negative); Mucus Negative (Negative)
[2021-04-21 14:03] LABS: Potassium 2.7 mmol/L (3.5-5.1)
== END 2021-04-21 15:04 | disposition home or self-care (01) ==
LOC: LBO 15:05
PROVIDERS: PCP Nurse Practitioner; Visit Provider Family Medicine
DX: N30.00 Acute cystitis without hematuria (principal)
CPT/HCPCS: 36415; 80053; 85027; 85652; 87040; 81003; 81015; 84443; 85025; 86140; 87086

== ENCOUNTER 2021-04-23 12:36 | Outpatient (REF) | payer OTHER, SELFPAY ==
[2021-04-23 15:22] LABS: Anion Gap 11.7 mmol/L (3-11); CO2 22.3 mmol/L (21.0-32.0); CREATININE 1.1 mg/dL (0.55-1.02); Calcium 8.7 mg/dL (8.5-10.1); Chloride 105 mmol/L (98-107); Glucose 137 mg/dL (74-106); Sodium 139 mmol/L (136-145)
[2021-04-23 15:47] LABS: BUN 14 mg/dL (7-18); Potassium 4.1 mmol/L (3.5-5.1)
== END 2021-04-23 12:37 | disposition home or self-care (01) ==
LOC: LBN 12:36
PROVIDERS: PCP Nurse Practitioner; Visit Provider Family Medicine
DX: E87.6 Hypokalemia (principal)
CPT/HCPCS: 80048

== ENCOUNTER 2021-04-28 15:55 | Outpatient (REF) | payer OTHER, SELFPAY ==
[2021-04-28 15:11] LABS: Anion Gap 9.5 mmol/L (3-11); BUN 9 mg/dL (7-18); CO2 26.5 mmol/L (21.0-32.0); CREATININE 1.1 mg/dL (0.55-1.02); Calcium 9.1 mg/dL (8.5-10.1); Chloride 106 mmol/L (98-107); Estimated GFR 50.33 (mL/min/1.73m2); Glucose 98 mg/dL (74-106); Potassium 4.1 mmol/L (3.5-5.1); Sodium 142 mmol/L (136-145)
== END 2021-04-28 15:56 | disposition home or self-care (01) ==
LOC: NCHCN 15:55
PROVIDERS: PCP Nurse Practitioner; Visit Provider Nurse Practitioner Family
DX: I10 Essential (primary) hypertension (principal); E87.6 Hypokalemia
CPT/HCPCS: 80048

== ENCOUNTER 2021-05-28 15:38 | Outpatient (REF) | payer OTHER, SELFPAY ==
[2021-05-28 14:48] LABS: Bilirubin Negative (Negative); Blood Small (Negative); Clarity Cloudy (Clear); Glucose Negative (Negative); Ketones Negative (Negative); Leukocyte Esterase Large (Negative); Nitrite Negative (Negative); Urobilinogen 0.2 EU/dL (Up TO 0.2)
[2021-05-28 14:57] LABS: Bacteria Few HPF (Negative); Crystals Negative HPF (Negative); Epithelial Cells Few HPF (Negative); Mucus Negative (Negative); Other Cells Few Yeast (Negative); WBC >50 HPF (0-5)
[2021-05-28 14:58] LABS: C & S Indicated? Yes; Casts 0-2 Hyaline LPF (Negative)
[2021-05-28 15:03] LABS: ALT 28 U/L (14-59); AST 33 U/L (15-37); Albumin 3.3 g/dL (3.4-5.0); Alkaline Phosphatase 73 U/L (46-116); Anion Gap 9.9 mmol/L (3-11); BUN 9 mg/dL (7-18); Bilirubin, Total 0.5 mg/dL (0.2-1.0); CO2 25.1 mmol/L (21.0-32.0); Chloride 109 mmol/L (98-107); Estimated GFR 56.18 (mL/min/1.73m2); Glucose 95 mg/dL (74-106); Potassium 4.4 mmol/L (3.5-5.1); Sodium 144 mmol/L (136-145); Total Protein 7.6 g/dL (6.4-8.2)
[2021-05-28 16:07] LABS: PROTEIN 31.1 mg/dL; Prot/Crea Ur Ratio 0.25
[2021-05-29 11:59] LABS: Lyme Ab w Rflx to Lyme Confirm Negative (Negative)
== END 2021-05-28 15:39 | disposition home or self-care (01) ==
LOC: NCHCN 15:38
PROVIDERS: PCP Nurse Practitioner; Visit Provider Nurse Practitioner Family
DX: I10 Essential (primary) hypertension (principal); E87.6 Hypokalemia; N17.9 Acute kidney failure, unspecified
CPT/HCPCS: 80053; 87077; 81003; 81015; 82565; 84156; 86618; 87086; 87186

== ENCOUNTER 2021-09-26 03:23 | Outpatient (CLI) | payer OTHER, SELFPAY ==
[2021-09-26 17:20] LABS: Abs Immature Grans 0.01 10^3/uL (0.0-0.06); Absolute Basophil Count 0.05 10^3/uL (0.0-0.2); Absolute Eosinophil Count 0.18 10^3/uL (0.0-0.7); Absolute Lymphocyte Count 1.86 10^3/uL (1.2-3.4); Absolute Monocyte Count 0.32 10^3/uL (0.1-0.8); Absolute Neutrophil Count 2.89 10^3/uL (1.2-6.7); Basophils % 0.9; Eosinophils % 3.4; HCT 40.4 % (36.0-46.0); HGB 13.3 g/dL (11.2-15.7); Immature Grans % 0.2; MCH 29.2 pg (27.0-33.0); MCHC 32.9 % (32.0-36.0); MCV 89 fL (80-95); MPV 9.2 fL (8.0-11.0); Neutrophils % 54.5; Platelet Count 223 10^3/uL (130-400); RBC 4.56 10^6/uL (3.93-5.22); RDW 14.1 % (11.7-14.6); RDW-SD 45.7 fL; WBC 5.31 10^3/uL (4.4-10.8)
[2021-09-26 17:23] LABS: ESR 24 mm/hr (0-30)
[2021-09-26 17:57] LABS: ALT 28 U/L (14-59); AST 21 U/L (15-37); Albumin 3.7 g/dL (3.4-5.0); Alkaline Phosphatase 85 U/L (46-116); Anion Gap 5.7 mmol/L (3-11); BUN 23 mg/dL (7-18); Bilirubin, Total 0.5 mg/dL (0.2-1.0); C-Reactive Protein 0.27 mg/dL (0.0-0.3); CO2 29.3 mmol/L (21.0-32.0); CREATININE 1.2 mg/dL (0.55-1.02); Calcium 9.1 mg/dL (8.5-10.1); Chloride 104 mmol/L (98-107); Estimated GFR 45.52 (mL/min/1.73m2); FREE T4 0.97 ng/dL (0.76-1.46); Glucose 109 mg/dL (74-106); Potassium 3.7 mmol/L (3.5-5.1); Sodium 139 mmol/L (136-145); TSH 1.22 uIU/mL (0.36-3.74); Total Protein 7.7 g/dL (6.4-8.2)
[2021-09-26 18:34] LABS: Ferritin 32 ng/mL (8-252); Folate 19.3 ng/mL (8.6-20.0); Vitamin B12 427 pg/mL (193-986)
[2021-09-26 19:31] LABS: Hemoglobin A1C 5.6 % (<5.7)
[2021-09-26 20:09] LABS: Iron 49 ug/dL (50-170); Total Iron Binding Capacity 305 ug/dL (250-450); Transferrin Sat 16 % (15-50)
[2021-09-28 19:20] LABS: T3,Free 3.5 pg/mL (2.8-5.3)
[2021-09-29 08:56] LABS: Homocysteine 11.9 umol/L (5.0-13.9)
[2021-09-29 09:19] LABS: Thyroperoxidase Antibody <28 U/mL (<=60)
[2021-09-29 12:46] LABS: EBNA IgG Positive (Negative); EBV Interpretation (See Note); VCA IgG Positive (Negative); VCA IgM Negative (Negative)
[2021-09-30 09:59] LABS: IgA 332 mg/dL (85-499); IgG 1659 mg/dL (610-1,616); IgM 58 mg/dL (35-242)
[2021-09-30 14:06] LABS: Lipoprotein (a) 7 nmol/L (<75)
[2021-09-30 18:35] LABS: M. pneumoniae Ab, IgG Positive (Negative); M. pneumoniae Ab, IgM Negative (Negative)
[2021-09-30 21:05] LABS: Onion, IgE <0.35 kU/L
[2021-10-01 16:59] LABS: Garlic, IgG 20.3 mcg/mL (<2.0); Onion, IgG 9.6 mcg/mL (<2.0)
[2021-10-03 22:38] LABS: Histamine, Whole Blood 1497 nmol/L (180-1800)
== END 2021-09-26 03:24 | disposition home or self-care (01) ==
LOC: LBO 03:23
PROVIDERS: PCP Nurse Practitioner; Visit Provider Naturopath
DX: L28.2 Other prurigo (principal); R53.83 Other fatigue; R09.3 Abnormal sputum; I10 Essential (primary) hypertension; E78.5 Hyperlipidemia, unspecified; Z13.1 Encounter for screening for diabetes mellitus
CPT/HCPCS: 36415; 80053; 82784; 83090; 83695; 85652; 86001; 86003; 82607; 82728; 82746; 83036; 83088; 83540; 83550; 84439; 84443; 84481; 85025; 86140; 86376; 86664; 86665; 86738

== ENCOUNTER 2021-11-12 18:30 | Outpatient (REF) | payer OTHER, SELFPAY ==
[2021-11-14 15:22] LABS: COVID-19 RT-PCR UVMMC Result Positive (Negative)
== END 2021-11-12 18:31 | disposition home or self-care (01) ==
LOC: LBN 18:30
PROVIDERS: PCP Nurse Practitioner; Visit Provider Physician Assistant Medical
DX: Z20.822 Contact with and (suspected) exposure to COVID-19 (principal)
CPT/HCPCS: U0003

== ENCOUNTER 2021-12-03 10:37 | Outpatient (CLI) | payer OTHER, SELFPAY ==
[2021-12-03 12:11] LABS: ALT 26 U/L (14-59); AST 20 U/L (15-37); Albumin 3.6 g/dL (3.4-5.0); Alkaline Phosphatase 73 U/L (46-116); Anion Gap 4.8 mmol/L (3-11); BUN 20 mg/dL (7-18); Bilirubin, Total 0.7 mg/dL (0.2-1.0); CO2 30.2 mmol/L (21.0-32.0); CREATININE 1.2 mg/dL (0.55-1.02); Calcium 9.1 mg/dL (8.5-10.1); Chloride 107 mmol/L (98-107); Estimated GFR 51.18 (mL/min/1.73m2); Glucose 96 mg/dL (74-106); Potassium 4.1 mmol/L (3.5-5.1); Sodium 142 mmol/L (136-145); Total Protein 7.8 g/dL (6.4-8.2)
== END 2021-12-03 10:38 | disposition home or self-care (01) ==
LOC: LBO 10:38
PROVIDERS: PCP Nurse Practitioner; Visit Provider Naturopath
DX: R53.83 Other fatigue (principal)
CPT/HCPCS: 36415; 80053

== ENCOUNTER 2022-05-12 15:53 | Outpatient (REF) | payer OTHER, SELFPAY ==
[2022-05-12 16:06] LABS: ALT 22 U/L (14-59); AST 27 U/L (15-37); Albumin 3.9 g/dL (3.4-5.0); Alkaline Phosphatase 79 U/L (46-116); Anion Gap 8.4 mmol/L (3-11); BUN 22 mg/dL (7-18); Bilirubin, Total 0.9 mg/dL (0.2-1.0); CO2 26.6 mmol/L (21.0-32.0); CREATININE 1.2 mg/dL (0.55-1.02); Calcium 9.8 mg/dL (8.5-10.1); Calculated LDL 148 mg/dL (<100); Chloride 106 mmol/L (98-107); Cholesterol 216 mg/dL (<200); Estimated GFR 50.86 (mL/min/1.73m2); Glucose 95 mg/dL (74-106); HDL Cholesterol 48 mg/dL (40-60); Sodium 141 mmol/L (136-145); Total Protein 7.9 g/dL (6.4-8.2); Triglyceride 104 mg/dL (<150)
== END 2022-05-12 15:54 | disposition home or self-care (01) ==
LOC: NCHCN 15:53
PROVIDERS: PCP Nurse Practitioner; Visit Provider Nurse Practitioner Family
DX: I10 Essential (primary) hypertension (principal); Z13.220 Encounter for screening for lipoid disorders; Z79.899 Other long term (current) drug therapy; N18.9 Chronic kidney disease, unspecified
CPT/HCPCS: 80053; 80061

== ENCOUNTER 2022-06-09 01:13 | Outpatient (CLI) | payer OTHER, SELFPAY ==
--- NOTE | 2022-06-09 12:15 | DI.MAMMO_ITS ---
Exam(s) MAMMO SCREENING EXAM: MAMMO SCREENING CLINICAL HISTORY: SCREENING, Z12.39 TECHNIQUE: Mammograms were interpreted according to the usual protocol including computer analysis w [employer] CAD system, tomosynthesis and C-view imaging. COMPARISON: 2020 FINDINGS: The breasts are composed of scattered fibroglandular densities, Breast Density category B. No suspicious masses or suspicious microcalcifications are seen. No skin thickening or abnormal axillary lymph nodes are seen. There has been no significant change from prior exams. IMPRESSION: BI-RADS Category 1, Negative mammogram Yearly screening mammography is recommended. Breast Density - Category B, scattered fibroglandular densities. A negative radiographic report should not delay biopsy if a dominant or clinically suspicious mass is present. Up to ten percent of cancers are not identified on mammography. A negative report may reinforce clinical impression. Adenosis and dense breasts may obscure an underlying neoplasm. False positive reports average 6 to 10%. Patient will receive a letter notifying them of these results.
== END 2022-06-09 01:33 ==
PROVIDERS: PCP Nurse Practitioner Family; Visit Provider Nurse Practitioner Family
DX: Z12.31 Encounter for screening mammogram for malignant neoplasm of breast (principal)
CPT/HCPCS: 77063; 77067

== ENCOUNTER 2022-09-17 16:15 | Outpatient (REF) | payer OTHER, SELFPAY ==
[2022-09-17 17:37] LABS: ALT 23 U/L (14-59); AST 18 U/L (15-37); Albumin 3.7 g/dL (3.4-5.0); Alkaline Phosphatase 86 U/L (46-116); Anion Gap 10.6 mmol/L (3-11); BUN 21 mg/dL (7-18); Bilirubin, Total 0.7 mg/dL (0.2-1.0); CO2 27.4 mmol/L (21.0-32.0); CREATININE 1.1 mg/dL (0.55-1.02); Calcium 9.2 mg/dL (8.5-10.1); Chloride 109 mmol/L (98-107); Estimated GFR 56.46 (mL/min/1.73m2); Glucose 94 mg/dL (74-106); Potassium 3.8 mmol/L (3.5-5.1); Sodium 147 mmol/L (136-145); TSH (W/Ref FT4) 1.46 uIU/mL (0.36-3.74); Total Protein 7.3 g/dL (6.4-8.2)
== END 2022-09-17 16:16 | disposition home or self-care (01) ==
LOC: NCHCN 16:15
PROVIDERS: PCP Nurse Practitioner Family; Visit Provider Nurse Practitioner Family
DX: I10 Essential (primary) hypertension (principal); N18.9 Chronic kidney disease, unspecified; Z79.899 Other long term (current) drug therapy
CPT/HCPCS: 80053; 83735; 84443

== ENCOUNTER 2023-12-06 13:09 | Outpatient (REF) | payer OTHER, SELFPAY ==
--- OUTSIDE RECORDS SUMMARY | 2023-12-06 13:15 | XMS_ITS | Referral Summary ---
Author Organization [facility] Address [address] [place] [address] Care Team Providers Care Tax Accounting Manager Name Role Phone Unavailable Primary Care Provider Unavailabl e Social History Tobacco Use Types Packs/Day Years Used Date Smoking Tobacco: Never Assessed Sex and Gender Information Value Date Recorded Sex Assigned at Not on file Gender Identity Not on file Sexual Orientation Not on file Plan of Treatment Not on file
--- OUTSIDE RECORDS SUMMARY | 2023-12-06 13:15 | XMS_ITS | Clinical Summary ---
Author Organization [facility] Address [address] [place] [address] Care Team Providers Care City Alderman Name Role Phone Unavailable Primary Care Provider Unavailabl e Social History Tobacco Use Types Packs/Day Years Used Date Smoking Tobacco: Never Assessed Sex and Gender Information Value Date Recorded Sex Assigned at Not on file Gender Identity Not on file Sexual Orientation Not on file Plan of Treatment Health Maintenance Due Date Last Done Comments Hepatitis C Screen 1960 RSV Immunization ( o r 60+ Years) (1 - 1-dose 60+ series) 2019 COVID-19 Vaccine (24 season) 2022
--- OUTSIDE RECORDS SUMMARY | 2023-12-06 13:15 | XMS_ITS | Encounter Summary ---
Author Organization [facility] Address [address] [place] [address] Care Team Providers Care Lubrication Worker Name Role Phone Unavailable Primary Care Provider Unavailabl e Encounter Details Date Type Department Care Team (Late st Contact Info) Description 09/27/2021 Lab Requisition [facility] Pathology & Laboratory Medicine - [facility] [address] [place] [address] Outr Resulting Lab, Provider Social History Tobacco Use Types Packs/Day Years Used Date Smoking Tobacco: Never Assessed Sex and Gender Information Value Date Recorded Sex Assigned at Not on file Gender Identity Not on file Sexual Orientation Not on file documented as of this encounter Plan of Treatment Not on file documented as of this encounter Procedures Procedure Name Priority Date/Time Associated Diagnosis Comments THYROPEROXIDASE ANTIBODY Routine 09/26/2021 16:47 EDT ASHLEIGH-OLSON PANEL Routine 09/26/2021 16 :47 EDT IMMUNOGLOBULINS Routine 09/26/2021 16:47 EDT T3 FREE Routine 09/26/2021 16:47 EDT HOMOCYSTEINE Routine 09/26/2021 16:47 EDT documented in this encounter Results * HOMOCYSTEINE (09/26/2021 16:47 EDT) Homocysteine 11.9 5.0 - 13.9 umol/L 09/29/2021 8:52 EDT [facility] Blood VENOUS BLOOD / Unknown 09/26/2021 16:47 EDT 09/28/2021 18:29 EDT Narrative [facility] - 09/29/2021 8:52 EDT Reference range may not apply to non-fasting samples. ??It is not recommended that EDTA plasma and serum from the same patient be used interchangeably. ??Serum concentrations have been observed to be up to 10% higher than EDTA plasma. Reference range may not apply to serum results. Provider Outr Resulting Lab CHEMISTRY & BLOOD GAS ORDERABLES Performing Organization Address [facility] Co de Phone Number [facility] [address] [place] [address] * T3 FREE (09/26/2021 16:47 EDT) [facility] T3, Free 3.5 2.8 - 5.3 pg/mL 09/28/2021 19:15 EDT [facility] Blood VENOUS BLOOD / Unknown 09/26/2021 16:47 EDT 09/28/2021 18:29 EDT Provider Outr Resulting Lab CHEMISTRY & BLOOD GAS ORDERABLES Performing Organization Address [facility] Co de Phone Number [facility] [address] [place] [phone] * THYROPEROXIDASE ANTIBODY (09/26/2021 16:47 EDT) [facility] Thyroperoxidase Ab <28 <=60 U/mL 2021 9:14 EDT [facility] Blood VENOUS BLOOD / Unknown 09/26/2021 16:47 EDT 09/28/2021 18:29 EDT Provider Outr Resulting Lab CHEMISTRY & BLOOD GAS ORDERABLES Performing Organization Address [facility] de Phone Number [facility] [address] [place] [phone] * (ABNORMAL) ASHLEIGH-OLSON PANEL (09/26/2021 16:47 EDT) [facility] EBV VCA IgM, Antibody Negative Negative 09/29/2021 12:42 EDT [facility] Comment:Absence of detectabl e VCA IgM antibodies. EBV VCA IgG, Antibody Positive(A) Negative 09/29/2021 12:42 EDT [facility] Comment:Presence of detectab le VCA IgG antibodies. EBNA IgG Antibody Positive(A) Negative 2021 12:42 EDT [facility] Comment:Presence of detectab le EBNA IgG antibodies. EBV Interpretation Results would indicate past infection with Ashleigh-Olson virus 09/29/2021 12:42 EDT [facility] Blood VENOUS BLOOD / Unknown 09/26/2021 16:47 EDT 09/28/2021 18:29 EDT Provider Outr Resulting Lab IMMUNOLOGY A ND SEROLOGY ORDERABLES Performing Organization Address [facility] Co de Phone Number [facility] [address] [place] [address] * (ABNORMAL) IMMUNOGLOBULINS (09/26/2021 16:47 EDT) IgG 1,659(H) 610-1,616 mg/dL 09/30/2021 9:53 EDT [facility] IgA 332 85 - 499 mg/dL 09/30/2021 9:53 EDT [facility] IgM 58 35 - 242 mg/dL 09/30/2021 9:53 EDT [facility] Blood VENOUS BLOOD / Unknown 09/26/2021 16:47 EDT 09/28/2021 18:29 EDT Provider Outr Resulting Lab CHEMISTRY & BLOOD GAS ORDERABLES Performing Organization Address City/[facility]/ZIP Co de Phone Number [facility] [address] [place] [address] documented in this encounter Visit Diagnoses Not on filedocumented in this encounter Additional Health Concerns Infection Onset Date Last Indicated Resolved Time COVID-19 11/12/2021 11/12/2021 12/02/2021 22:1 5 EDT documented as of this encounter
--- OUTSIDE RECORDS SUMMARY | 2023-12-06 13:15 | XMS_ITS | Encounter Summary ---
[place] [address] Care Team Providers Care Director Oracle Name Role Phone Neva Newsome APRN Primary Care Provider [phone] Reason for Referral * Allergy Testing (Routine) - Closed Specialty Diagnoses / Procedures Referred By Contannette knox Referred To Contact Allergy Diagnoses Functional dyspepsia Swollen upper lip Allergic contact dermatitis, unspecified trigger Neva Newsome APRN [address] [place] [address] [facility] All[facility] [address] [place] [phone] Referral ID Status Reason Start Date Expiration Date V isits Requested Visits Authorized [id number] Closed Consult, Test & Treat 06/11/2021 06/11/2022 6 6 Encounter Details Date Type Department Care Team (Latest Contact Info) Description 06/11/2021 Transcribe Orders eDH Incoming Referrals [phone] Neva Newsome APRN [address] [place], [place] [phone] Functional dyspepsia; Swollen upper lip; Allergic contact dermatitis, unspecified trigger Social History Tobacco Use Types Packs/Day Years Used Date Smoking Tobacco: Never Assessed Sex and Gender Information Value Date Recorded Sex Assigned at Not on file Gender Identity Not on file Sexual Orientation Not on file documented as of this encounter Plan of Treatment Scheduled Referrals Name Type Priority Associated Diagnoses Orde r Schedule Referral to Allergy Outpatient Referral Routine Functional dyspepsia Swollen upper lip Allergic contact dermatitis, unspecified trigger Ordered: 06/11/2021 documented as of this encounter Visit Diagnoses Diagnosis Functional dyspepsia Dyspepsia and other specified disorders of function of stomach Swollen upper lip Swelling, mass, or lump in head and neck Allergic contact dermatitis, unspecified trigger documented in this encounter Care Teams Director Oracle Relationship Specialty Start Date End Date Neva Newsome, [employer] [place] [address] PCP - General Family Medicine 06/11/21 documented as of this encounter
--- OUTSIDE RECORDS SUMMARY | 2023-12-06 13:15 | XMS_ITS | Encounter Summary ---
Author Organization [facility] Address [address] [place] [address] Care Team Providers Care Travel Clerk Name Role Phone Unavailable Primary Care Provider Unavailabl e Encounter Details Date Type Department Care Team (Late st Contact Info) Description 11/13/2021 Lab Requisition [facility] Pathology & Laboratory Medicine - [facility] [address] [place] [address] Outr Resulting Lab, Provider Social History Tobacco [...] Procedure Name Priority Date/Time Associated Diagnosis Comments ZZCOVID-19 TEST [facility] PCR Today 11/12/2021 17:15 EDT COVID-19 TESTING Routine 11/12/2021 17:1 5 EDT documented in this encounter Results * COVID-19 TEST [facility] PCR (11/12/2021 17:15 EDT) Swab 11/12/2021 17:1 5 EDT 11/13/2021 17:11 EDT Provider Outr Resulting Lab MICROBIOLOGY - GENERAL ORDERABLES [facility] [address] [place] [address] * (ABNORMAL) COVID-19 TESTING (11/12/2021 17:15 EDT) COVID-19 rt-PCR Result Positive( AA) Negative 11/14/2021 15:17 EDT [facility] Comment: This test has not been FDA cleared or approved. This test has been authorized by FDA under an EUA for use by authorized laboratories. This test has been authorized only for detection of nucleic acid from 2019-nCoV, not for any other viruses or pathogens. This test is only authorized for the duration of the declaration that circumstances exist justifying the authorization of emergency use of in vitro diagnostic tests for detection and/or diagnosis of 2019-nCoV under section 564(b)(1) of Act, 21 U.S.C ?? 360bbb-3(b) (1), unless the authorization is terminated or revoked sooner. Testing was performed using the afshin SARS-CoV-2 assay ([employer] on the Afshin 6800 System Performing Lab Afshin [address] [facility] 11/14/2021 15:17 EDT [facility] Swab 11/12/2021 17:1 5 EDT 11/13/2021 17:11 EDT Provider Outr Resulting Lab MICROBIOLOGY - GENERAL ORDERABLES [facility] [address] [place] [address] documented in this encounter Visit Diagnoses Not on filedocumented in this encounter Additional Health Concerns Infection Onset Date Last Indicated Resolved Time COVID-19 11/12/2021 11/12/2021 12/02/2021 22:1 5 EDT documented as of this encounter
--- OUTSIDE RECORDS SUMMARY | 2023-12-06 13:15 | XMS_ITS | Clinical Summary ---
Author Organization [facility] [place] [address] Care Team Providers Care Gate Agent Name Role Phone Neva Newsome APRN Primary Care Provider [phone] Social History Tobacco Use Types Packs/Day Years Used Date Smoking Tobacco: Never Assessed Sex and Gender Information Value Date Recorded Sex Assigned at Not on file Gender Identity Not on file Sexual Orientation Not on file Plan of Treatment Health Maintenance Due Date Last Done Comments CT Colonography 1959 Colonoscopy 1959 Colorectal Cancer Screening 1959 FIT DNA 1959 FIT 1959 Sigmoidoscopy (10 year) with FIT yearly 1959 Sigmoidoscopy 1959 HIV screen 1977 Hepatitis C Screening 1977 Tdap adult 1978 Tetanus vaccine 1978 HPV test 1989 PAP Smear 1989 Breast Cancer Share Decision Needed 1999 Breast Cancer screening 1999 Zoster vaccine (1 of 2) 2009 Advance Directive 2014 Covid-19 Vaccine ( season) 2023 Influenza (Flu) vaccine (1 o f 1 - Influenza standard series) 11/28/2023 Care Teams Gate Agent Relationship Specialty Start Date End Date Neva Newsome [place] [address] PCP - General Family Medicine 06/11/21
--- OUTSIDE RECORDS SUMMARY | 2023-12-06 13:15 | XMS_ITS | Encounter Summary ---
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 [address] [place] [address] Outr Resulting Lab, Provider Social History Tobacco [...] Priority Date/Time Associated Diagnosis Comments ZZCOVID-19 TEST [facility] PCR Today 04/11/2021 10:25 EST COVID-19 TESTING Routine 04/11/2021 10:2 5 EST documented in this encounter Results * COVID-19 TEST [facility] PCR (04/11/2021 10:25 EST) Swab 04/11/2021 10:2 5 EST 04/11/2021 16:26 EST Provider Outr Resulting Lab MICROBIOLOGY - GENERAL ORDERABLES [facility] [address] [place] [address] * COVID-19 TESTING (04/11/2021 10:25 EST) COVID-19 rt-PCR Result Negative Negative 04/12/2021 14:52 EST [facility] Comment: This test has [...] the authorization is terminated or revoked sooner. Negative results do not preclude 2019-nCoV infection and should not be used as the sole basis for treatment or other patient management decisions. Negative results must be combined with clinical observations, patient history, and epidemiological information. This test was developed and its performance characteristics determined by [facility]. It has not been cleared or approved by the [place] Food and Drug Administration. FDA does not require this test to go through premarket FDA review. This test is used for clinical purposes. It should not be regarded as investigational or for research. This laboratory is certified under the Clinical Laboratory Improvement Amendments (CLIA) as qualified to perform high complexity clinical laboratory testing. This test is based on the [facility] COVID-19 Emergency Use Authorization (EUA) assay, with minor modification as defined by the FDA Performed on the [employer] 7 Flex RT-PCR System. Performing Lab [facility] 04/12/2021 14:52 EST [facility] Swab 04/11/2021 10:2 5 EST 04/11/2021 16:26 EST Provider Outr Resulting Lab MICROBIOLOGY - GENERAL ORDERABLES [facility] [address] [place] [address] documented in this encounter Visit Diagnoses Not on filedocumented in this encounter Additional Health Concerns Infection Onset Date Last Indicated Resolved Time COVID-19 11/12/2021 11/12/2021 12/02/2021 22:1 5 EDT documented as of this encounter
--- OUTSIDE RECORDS SUMMARY | 2023-12-06 13:15 | XMS_ITS | Encounter Summary ---
Author Organization 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 Name Role Phone Unavailable Primary Care Provider Unavailabl e Encounter Details Date Type Department Care Team (Late st Contact Info) Description 05/28/2021 Lab Requisition [facility] Pathology & Laboratory Medicine - [facility] [address] [place] [address] Outr Resulting Lab, Provider Social History Tobacco [...] Procedure Name Priority Date/Time Associated Diagnosis Comments LYME AB Routine 05/28/2021 9:20 EST documented in this encounter Results * LYME AB (05/28/2021 9:20 EST) Lyme Ab Negative Negative 05/29/2021 11:53 EST [facility] Blood VENOUS BLOOD / Unknown 05/28/2021 9:20 EST 05/28/2021 21:30 EST Provider Outr Resulting Lab IMMUNOLOGY A ND SEROLOGY ORDERABLES [facility] [address] [place] [address] documented in this encounter Visit Diagnoses Not on filedocumented in this encounter Additional Health Concerns Infection Onset Date Last Indicated Resolved Time COVID-19 11/12/2021 11/12/2021 12/02/2021 22:1 5 EDT documented as of this encounter
[2023-12-06 19:38] LABS: ALT 28 U/L (14-59); AST 24 U/L (15-37); Albumin 3.6 g/dL (3.4-5.0); Alkaline Phosphatase 85 U/L (46-116); Anion Gap 7.5 mmol/L (3-11); BUN 14 mg/dL (7-18); Bilirubin, Total 0.55 mg/dL (0.2-1.0); CO2 26.5 mmol/L (21.0-32.0); CREATININE 1.1 mg/dL (0.55-1.02); Calcium 9.1 mg/dL (8.5-10.1); Calculated LDL 106 mg/dL (<100); Chloride 108 mmol/L (98-107); Cholesterol 177 mg/dL (<200); Estimated GFR 56.11 (mL/min/1.73m2); Glucose 94 mg/dL (74-106); HDL Cholesterol 47 mg/dL (40-60); Potassium 4.5 mmol/L (3.5-5.1); Sodium 142 mmol/L (136-145); Total Protein 7.5 g/dL (6.4-8.2); Triglyceride 120 mg/dL (<150)
== END 2023-12-06 13:10 | disposition home or self-care (01) ==
LOC: NCHCN 13:09
PROVIDERS: PCP Nurse Practitioner Family; Visit Provider Nurse Practitioner Family
DX: Z00.00 Encounter for general adult medical examination without abnormal findings (principal)
CPT/HCPCS: 80053; 80061

== ENCOUNTER 2024-05-09 02:28 | Outpatient (CLI) | payer MEDICARE, SELFPAY ==
--- NOTE | 2024-05-09 | DI.MAMMO_ITS ---
Exam(s) MAMMO SCREENING EXAM: MAMMO SCREENING CLINICAL HISTORY: SCREENING, Z12.39. TECHNIQUE: Bilateral full field digital CC and MLO mammographic images were obtained with 3D tomosyn thesis and utilizing computer aided detection (CAD). COMPARISON: Prior mammograms were reviewed. FINDINGS: There has been no significant change in the appearance and distribution of the fibroglandular tissue. There are no new spiculated masses nor malignant appearing microcalcification groups. There is no significant architectural distortion nor skin thickening-retraction. IMPRESSION: No radiographic evidence of malignancy. BI-RADS Category 1 - Negative Breast Density - Category B - Scattered areas of fibroglandular density Breast density Category C or D implies that the patient has dense breast tissue. Dense breast tissue can make it harder to find cancer on a mammogram. Dense breast tissue is also associated with an incr eased risk of breast cancer. This information about the result of the mammogram report was provided to the patient to raise their awareness. Use this report when you speak with the patient about their risks for breast cancer, which includes their family history. At that time, you may recommend additional screening tests (Ultrasoun d or MRI) as these tests may add significant information. A negative radiographic report should not delay biopsy if a dominant or clinically suspicious mass is present. Up to ten percent of cancers are not identified on mammography. A negative report may reinforce clinical impression. Adenosis and dense breasts may obscure an underlying neoplasm. False positive reports average 6 to 10%. Patient will receive a letter notifying them of these results.
== END 2024-05-09 02:48 ==
PROVIDERS: PCP Nurse Practitioner Family; Visit Provider Nurse Practitioner Family
DX: Z12.31 Encounter for screening mammogram for malignant neoplasm of breast (principal); R92.323 Mammographic fibroglandular density, bilateral breasts
CPT/HCPCS: 77063; 77067